=== PATIENT | male | born 1955 | race Caucasian/White ===

== ENCOUNTER 2016-08-09 22:32 | Emergency (ER) | payer BC ==
[~2016-08-09] VITALS: Ht 188 cm; Wt 96.6 kg
[2016-08-09 22:34] VITALS: Ht 188 cm; Wt 96.6 kg
[2016-08-09] MEDS ORDERED: ALBUT/IPRATROP 3MG/0.5MG NEB 3 ML VIAL INH STA (23:19)
[2016-08-09] MEDS ORDERED: METHYLPREDNISOLONE 125 MG VIAL IV STA (23:19)
[2016-08-09] MEDS ORDERED: KETOROLAC TROMETHAMINE 30 MG/ML VIAL IV STA (23:22)
[2016-08-09] MEDS ORDERED: OMEG10007 PO (23:26)
[2016-08-09] MEDS ORDERED: MULT-506 PO (23:27)
--- NOTE | 2016-08-09 23:27 | EMERGENCY ROOM VISIT NOTE ---
History Report prepared by Jaya: Aren Anne Under the Supervision of: Dr. Angélica Lockett M.D. First contact with patient: 23:13 Chief Complaint: FLU LIKE SX Stated Complaint: FEVER 103,WHEEZING(ASTHMA),FLU History of Present Illness The patient is a 60 year old male who presents to the Emergency Room with complaints of worsening difficulty breathing that began on Wednesday of this week, 4 days prior to arrival. The patient states that his symptoms began on Wednesday as a common cold, but began to worsen over the past couple of days. He has been experiencing an intermittent fever that reached 103 degrees this evening prior to arrival. Tylenol has been breaking his fevers for a short time , but then they return. His difficulty breathing is accompanied with wheezing and a persistent cough. He does have a history of asthma, but his Albuterol inhaler was not improving his difficulty breathing. He denies any chest pain, aside from muscular pain from his cough. 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 A total of 10 systems reviewed and were otherwise negative. Past Medical & Surgical Medical Problems: (1) Carpal tunnel syndrome Family History Heart disease Hypertension Lung disease Social History Smoking Status: Never Smoker Drug Use: none Marital Status: Housing Status: lives with significant other Occupation Status: employed Current/Historical Medications Scheduled Chondroitin Sulfate-Vitamin C- (Chondroitin Sulfate), 1 CAP PO DAILY Fish Oil (Gamaliel-3), 1 CAP PO DAILY Multivitamin (Multivitamin), 1 TAB PO DAILY Prednisone (Prednisone), 40 MG PO DAILY Scheduled PRN Albuterol Sulfate (Proventil Hfa), 2 PUFFS INH DIRECTED PRN for asthma Fluticasone Prop/Salmeterol (Advair Diskus 250/50 60 Dose), 1 PUFF INH BID PRN for asthma Allergies Coded Allergies: No Known Allergies (Unverified , 08/09/16) Physical Exam Vital Signs Date Time Temp Pulse Resp B/P Pulse Ox O2 Delivery O2 Flow Rate FiO2 08/10/16 01:50 77 16 109/63 90 08/10/16 00:29 75 16 113/60 90 Room Air 08/09/16 23:45 77 08/09/16 23:36 37.2 08/09/16 22:34 37.0 97 20 131/73 92 Room Air Physical Exam Vital signs reviewed. General: Well-appearing male, in no significant distress. HEENT: No scleral icterus, PERRLA, neck supple. Atraumatic. TMs partially obstructed by cerumen bilaterally. Posterior oropharynx is clear. Cardiovascular: Regular rate and rhythm, no extra sounds. Pulmonary: Faint wheezing throughout bilateral lung wheat, normal work of breathing. Abdomen: Soft, nontender, nondistended, positive bowel sounds. Musculoskeletal: Atraumatic, no peripheral edema. Neurologic: Patient awake alert and oriented x 3, full strength in all 4 extremities. Cranial nerves 2 through 12 grossly intact. Skin: Warm to touch, dry, no rash Medical Decision & Procedures ER Provider Diagnostic Interpretation: X-ray results as stated below per interpretation by me and the radiologist: CHEST X-RAY: Normal chest x-ray. No acute infiltrate, no pneumothorax. Laboratory Results 08/09/16 22:52 Red Blood Count 4.25, Mean Corpuscular Volume 93.4, Mean Corpuscular Hemoglobin 32.9, Mean Corpuscular Hemoglobin Concent 35.3, Mean Platelet Volume 9.9, Neutrophils (%) (Auto) 73.3, Lymphocytes (%) (Auto) 15.7, Monocytes (%) (Auto) 10.4, Eosinophils (%) (Auto) 0.4, Basophils (%) (Auto) 0.1, Neutrophils # (Auto ) 5.00, Lymphocytes # (Auto) 1.07, Monocytes # (Auto) 0.71, Eosinophils # (Auto ) 0.03, Basophils # (Auto) 0.01 08/09/16 22:52 Test 08/09/16 22:52 White Blood Count 6.83 K/uL (4.8-10.8) Red Blood Count 4.25 M/uL (4.7-6.1) Hemoglobin 14.0 g/dL (14.0-18.0) Hematocrit 39.7 % (42-52) Mean Corpuscular Volume 93.4 fL (80-100) Mean Corpuscular Hemoglobin 32.9 pg (25-34) Mean Corpuscular Hemoglobin Concent 35.3 g/dl (32-36) Platelet Count 159 K/uL (130-400) Mean Platelet Volume 9.9 fL (7.4-10.4) Neutrophils (%) (Auto) 73.3 % Lymphocytes (%) (Auto) 15.7 % Monocytes (%) (Auto) 10.4 % Eosinophils (%) (Auto) 0.4 % Basophils (%) (Auto) 0.1 % Neutrophils # (Auto) 5.00 K/uL (1.4-6.5) Lymphocytes # (Auto) 1.07 K/uL (1.2-3.4) Monocytes # (Auto) 0.71 K/uL (0.11-0.59) Eosinophils # (Auto) 0.03 K/uL (0-0.5) Basophils # (Auto) 0.01 K/uL (0-0.2) RDW Standard Deviation 41.6 fL (36.4-46.3) RDW Coefficient of Variation 12.3 % (11.5-14.5) Immature Granulocyte % (Auto) 0.1 % Immature Granulocyte # (Auto) 0.01 K/uL (0.00-0.02) Red Blood Cell Morphology Unremarkable Anion Gap 14.0 mmol/L (3-11) Est Creatinine Clear Calc Drug Dose 85.1 ml/min Estimated GFR () 85.3 Estimated GFR (Non- 73.6 BUN/Creatinine Ratio 16.4 (10-20) Calcium Level 8.4 mg/dl (8.5-10.1) Total Bilirubin 0.4 mg/dl (0.2-1) Direct Bilirubin 0.1 mg/dl (0-0.2) Aspartate Amino Transf (AST/SGOT) 32 U/L (15-37) Alanine Aminotransferase (ALT/SGPT) 42 U/L (12-78) Alkaline Phosphatase 59 U/L (45-117) Total Protein 7.0 gm/dl (6.4-8.2) Albumin 3.4 gm/dl (3.4-5.0) Influenza Type A (RT-PCR) Neg for Influ A (NEG) Influenza Type A Antigen Neg for Influ A (NEG) Influenza Type B Antigen Neg for Influ B (NEG) Influenza Type B (RT-PCR) Neg for Influ B (NEG) Laboratory results per my review. Medications Administered Medications (Trade) Dose Ordered Sig/Holly Route Start Time Stop Time Status Last Admin Dose Admin Albuterol/ Ipratropium (Duoneb) 3 ml NOW STAT INH 08/09/16 23:19 08/09/16 23:21 DC 08/09/16 23:40 3 ML Methylprednisolone Sodium Succinate (Solu-Medrol IV) 125 mg NOW STAT IV 08/09/16 23:19 08/09/16 23:21 DC 08/09/16 23:41 125 MG Ketorolac Tromethamine (Toradol Inj) 30 mg NOW STAT IV 08/09/16 23:22 08/09/16 23:24 DC 08/09/16 23:41 30 MG Albuterol/ Ipratropium (Duoneb) 3 ml NOW STAT INH 08/10/16 01:03 08/10/16 01:04 DC 08/10/16 01:09 3 ML ECG Indication: SOB/dyspnea Rate (beats per minute): 74 Rhythm: normal sinus Findings: no acute ischemic change, no ectopy ED Course 2319: Past medical records reviewed. The patient was evaluated in room C2. A complete history and physical examination was performed. 2319: Ordered Methylprednisolone 125 mg IV, Duoneb 3 mL INH. 2322: Ordered Toradol 30 mg IV. 0030: Per the nursing staff, the patient claims to be feeling much better at this time. His Oxygen saturations are dropping below 90% periodically. 0100: I reevaluated the patient at this time, I will order a nebulizer treatment. 0136: Upon reevaluation, the patient appeared to have improvement of his symptoms. I discussed findings with him. He verbalized agreement of the treatment plan. The patient was discharged home. Medical Decision DDx: Influenza, other viral illness, pneumonia, urinary tract infection, metabolic abnormality, medication effect, cellulitis, meningitis, intra-abdominal source. This pt was evaluated and appeared to be in no distress. Pt was given a duoneb tx, IV solumedral. Pt was feeling improved, but continued with discomfort with coughing. CXR is clear, lab work is stable. Pt was given IV toradol and another duoneb tx. He was d/c to the care of his family with a Rx for prednisone 40 mg daily for 4 more days. Pt has an albuterol inhaler. He will f /u with his PCP this week and return to the ED for worsening of symptoms or any medical concerns. Impression Primary Impression: Viral illness Additional Impression: Asthma exacerbation Scribe Attestation The scribe's documentation has been prepared under my direction and personally reviewed by me in its entirety. I confirm that the note above accurately reflects all work, treatment, procedures, and medical decision making performed by me. Departure Information Dispostion Home / Self-Care Prescriptions Prednisone (Prednisone) 20 Mg Tab 40 MG PO DAILY, #8 TAB Prov: Angélica Lockett M.D. 08/10/16 Referrals Abelardo Cha M.D. (PCP) Forms HOME CARE DOCUMENTATION FORM, IMPORTANT VISIT INFORMATION Patient Instructions My [facility] Additional Instructions Diagnosis: Viral illness, asthma exacerbation Prednisone 40 mg daily for the next 4 days. Albuterol 2 puffs every 4 hours as needed for wheezing/cough. Tylenol 650 mg every 6 hours as needed for pain or fever. Follow-up with your physician this week for reevaluation. Problem Qualifiers
[2016-08-09] MEDS ORDERED: CHONCAP PO (23:28)
[2016-08-09] MEDS ORDERED: ALBUAER INH (23:29)
[2016-08-09] MEDS ORDERED: ADVIN25/60 INH (23:29)
[2016-08-09 23:36] VITALS: TEMP 37.2
[2016-08-09 23:47] LABS: BUN/CREATININE RATIO 16.4 (10-20); CALCIUM 8.4 mg/dl (8.5-10.1); CREATININE 1.1 mg/dl (0.60-1.40)
[2016-08-09 23:49] LABS: HEMATOCRIT 39.7 % (42-52); MEAN CELL VOLUME 93.4 fL (80-100); MEAN CORPUSCULAR HEMOGLOBIN 32.9 pg (25-34); MEAN CORPUSCULAR HGB CONC 35.3 g/dl (32-36); MEAN PLATELET VOLUME 9.9 fL (7.4-10.4); PLATELET COUNT 159 K/uL (130-400); RED BLOOD COUNT 4.25 M/uL (4.7-6.1); WHITE BLOOD COUNT 6.83 K/uL (4.8-10.8)
[2016-08-10 00:12] LABS: BASO % 0.1 %; BASO ABS # 0.01 K/uL (0-0.2); COMPLETE YES; EOS % 0.4 %; IG% 0.1 %; LYMPH % 15.7 %; LYMPH ABS # 1.07 K/uL (1.2-3.4); MONO % 10.4 %; NEUT % 73.3 %
[2016-08-10] MEDS ORDERED: ALBUT/IPRATROP 3MG/0.5MG NEB 3 ML VIAL INH STA (01:03)
[2016-08-10 01:24] LABS: INFLUENZA A PCR Neg for Influ A (NEG); INFLUENZA B PCR Neg for Influ B (NEG)
[2016-08-10] MEDS ORDERED: PRED20TA PO (01:37)
[2016-08-10 01:50] VITALS: BP 109/63; PULSE 77; O2SAT 90
--- NOTE | 2016-08-10 06:38 | DIAGNOSTIC IMAGING REPORT ---
CHEST ONE VIEW PORTABLE CLINICAL HISTORY: Cough. Fever. COMPARISON STUDY: No previous studies for comparison. FINDINGS: The lung volumes are normal. No consolidation is identified. Cardiac size is at the upper limits of normal. Mediastinal contours are normal. There is no evidence of pulmonary edema. IMPRESSION: No acute cardiopulmonary findings. Electronically signed by: Farhat Bianchi M.D. 08/10/2016 6:36 AM Dictated Date/Time: 08/10/2016 6:36 AM
== END 2016-08-10 01:52 | disposition home or self-care (01) ==
LOC: C.EDB 22:32 → C.EDC 08-10 01:52
DX: B34.9 Viral infection, unspecified (principal); J45.901 Unspecified asthma with (acute) exacerbation; Z79.899 Other long term (current) drug therapy; Z82.49 Family history of ischemic heart disease and other diseases of the circulatory system; Z83.6 Family history of other diseases of the respiratory system

== ENCOUNTER → 2017-05-07 | Outpatient (CLI) | payer BC ==
[~2017-05-07] MED LIST: ADVIN25/60 INH; ALBUAER INH; CHONCAP PO; MULT-506 PO; OMEG10007 PO
[2017-05-07 12:46] LABS: ESTIMATED AVERAGE GLUCOSE 120 mg/dl; HA1C FLAG Normal (Normal)
[2017-05-07 12:53] LABS: BASO % 0.2 %; BASO ABS # 0.01 K/uL (0-0.2); COMPLETE YES; EOS % 5.5 %; HEMATOCRIT 45.4 % (42-52); IG% 0.2 %; LYMPH % 26.3 %; LYMPH ABS # 1.24 K/uL (1.2-3.4); MEAN CELL VOLUME 95.2 fL (80-100); MEAN CORPUSCULAR HEMOGLOBIN 32.3 pg (25-34); MEAN CORPUSCULAR HGB CONC 33.9 g/dl (32-36); MEAN PLATELET VOLUME 10.1 fL (7.4-10.4); MONO % 9.8 %; PLATELET COUNT 180 K/uL (130-400); RED BLOOD COUNT 4.77 M/uL (4.7-6.1); WHITE BLOOD COUNT 4.71 K/uL (4.8-10.8)
[2017-05-07 13:02] LABS: ALT/SGPT 31 U/L (12-78); BLOOD UREA NITROGEN 17 mg/dl (7-18); BUN/CREATININE RATIO 16.8 (10-20); CALCIUM 8.9 mg/dl (8.5-10.1); CARBON DIOXIDE 29 mmol/L (21-32); CHLORIDE 101 mmol/L (98-107); CHOLESTEROL 220 mg/dl (0-200); CREATININE 1.02 mg/dl (0.60-1.40); GLUCOSE 93 mg/dl (70-99); POTASSIUM 3.7 mmol/L (3.5-5.1); SODIUM 139 mmol/L (136-145)
[2017-05-07 13:06] LABS: ALB/GLOB RATIO 1.1 (0.9-2); ALKALINE PHOSPHATASE 68 U/L (45-117); AST/SGOT 21 U/L (15-37); CHOLESTEROL/HDL RATIO 2.9; HDL CHOLESTEROL 75 mg/dl; LDL CHOLESTEROL CALCULATED 135 mg/dl; TRIGLYCERIDES 48 mg/dl (0-150); VERY LOW DENSITY LIPOPROT CALC 10 mg/dl
== END | disposition home or self-care (01) ==
LOC: C.LABPBG 07:35
PROVIDERS: ATTEND Internal Medicine
DX: N52.9 Male erectile dysfunction, unspecified (principal)

== ENCOUNTER 2023-01-14 21:32 | Inpatient (IN) ==
[2023-01-14] MEDS ORDERED: KETOROLAC TROMETHAMINE 15 MG/ML VIAL IV STA (21:43)
[2023-01-14] MEDS ORDERED: SODIUM CHLORIDE 0.9% 500 ML IV STA (21:43)
[2023-01-14 22:39] LABS: Appearance Urine Clear (Clear); Bacteria Urine Automated Negative (Negative); Bilirubin Urine Negative (Negative); Blood Urine 2+ (Negative); Color Urine Yellow; Epithelial Cell Urine Auto 0-5 /lpf (0-5); Glucose Urine UA Negative (Negative); Ketones Urine Trace (Negative); Leukocyte Esterase Urine Negative (Negative); Nitrite Urine Negative (Negative); Protein Urine Negative (Negative); RBC Urine Automated 0-4 /hpf (0-4); Specific Gravity Urine 1.014 (1.000-1.030); Urobilinogen Urine Negative (Negative); pH Urine 5.5 (4.5-7.5)
[2023-01-14 22:40] LABS: Basophils # (auto) 0.01 K/uL (0-0.2); Basophils % (auto) 0.1 %; Eosinophils # (auto) 0.02 K/uL (0-0.50); Eosinophils % (auto) 0.2 %; Hematocrit (blood only) 40.1 % (42.0-52.0); Hemoglobin 14.1 g/dl (14.0-18.0); Immature Granulocytes # (auto) 0.03 K/uL (0.01-0.20); Immature Granulocytes % (auto) 0.3 %; Lymphocytes # (auto) 0.49 K/uL (1.2-3.4); Lymphocytes % (auto) 5.3 %; Mean Corpuscular Hemoglobin 33.2 pg (25.0-34.0); Mean Corpuscular Hgb Conc 35.2 g/dL (32.0-36.0); Mean Corpuscular Volume 94.4 fL (80.0-100.0); Monocytes # (auto) 0.89 K/uL (0.11-0.59); Monocytes % (auto) 9.6 %; Neutrophils # (auto) 7.79 K/uL (1.40-6.50); Neutrophils % (auto) 84.5 %; Platelet Count 149 K/uL (130-400); RDW Coefficient of Variation 11.9 % (11.5-14.5); RDW Standard Deviation 41.3 fL (36.4-46.3); Red Blood Count 4.25 M/uL (4.70-6.10); White Blood Count 9.23 K/ul (4.8-10.8)
[2023-01-14 22:54] LABS: Albumin Globulin Ratio 1.5 (0.9-2); Albumin Level 4.6 gm/dl (3.4-5.0); BUN Creatinine Ratio 14.2 (10-20); Bilirubin,Total 1.3 mg/dl (0.2-1.0); Calcium 9.5 mg/dl (8.6-10.3); Creatinine Clr Calc Pharmacy 50.7 ml/min; Est GFR (African American) 48.3 ml/min; Est GFR (Non-African American) 41.7 ml/min; Potassium 4.6 mmol/L (3.5-5.1); Total Protein 7.6 gm/dl (6.0-8.3)
[2023-01-14] MEDS ORDERED: ONDANSETRON INJ 2 MG/ML 2 ML VIAL IV STA (23:17)
[2023-01-14] MEDS ORDERED: MoRPHine SULFATE 4 MG/ML 1 ML CARP\\VIAL IV STA (23:17)
--- NOTE | 2023-01-14 23:38 | Emergency Department Note ---
History of Present Illness General Chief complaint: Kidney Stone Stated complaint: KIDNEY STONE Time Seen by Provider: 01/14/23 23:16 History of Present Illness This 67-year-old male that was here yesterday for kidney stone presents to the ER complaining of worsening pain and states oxycodone is not helping. Patient denies loss of bowel bladder control, saddle anesthesia, fever chills, leg weakness, vomiting, diarrhea. He states he feels constipated from narcotics. Home Medications Medication Instructions Recorded Confirmed Type multivitamin 1 tab PO DAILY 06/04/19 01/14/23 History omega-3 fatty acids 1,000 mg 1,000 mg PO DAILY 06/04/19 01/14/23 History capsule glucosamine HCl 1,500 mg tablet 1,500 mg PO DAILY 01/03/20 01/14/23 History vitamin B complex (B 1 tab PO DAILY 06/25/20 01/14/23 History Complex-Vitamin B12 tablet) albuterol sulfate 90 mcg/actuation 1 puff inhalation Q4H PRN 08/18/21 01/14/23 Rx aerosol inhaler (Proventil HFA) shortness of breath or wheezing #6.7 grams rosuvastatin 10 mg tablet 10 mg PO DAILY #90 tabs 08/24/22 01/14/23 Rx tadalafil 20 mg tablet (Cialis) 20 mg PO DAILY PRN sexual activity 08/24/22 01/14/23 Rx #6 tabs ondansetron 4 mg disintegrating 4 mg PO Q4H PRN nausea and 01/13/23 01/14/23 Rx tablet vomiting 0 days #10 tabs oxycodone 5 mg tablet 5 mg PO Q6H PRN pain #14 tabs 01/14/23 01/14/23 Rx tamsulosin 0.4 mg capsule (Flomax) 0.4 mg PO QPM #30 caps 01/14/23 01/14/23 Rx Allergies Allergy/AdvReac Type Severity Reaction Status Date / Time levofloxacin [From Levaquin] Allergy chest pain Verified 01/14/23 15:18 Past Med/Surg History Medical History Asthma Bronchitis Chronic leukopenia Dyslipidemia Dysplastic nevus Impaired glucose metabolism Surgical History History of arthroscopy of knee History of colonoscopy History of testicular surgery exploration of undescended testis-right Family History Mother Coronary heart disease Breast cancer Myocardial infarction Heart disease Brother Hypertension Father Myocardial infarction Heart disease Denies family history of Ovarian cancer Prostate cancer Lung cancer Colorectal cancer Stroke Social History Smoking Status: Never smoker Second Hand Exposure: No; Do You Dip or Chew Tobacco: No; Hx Alcohol Use: Yes Alcohol type: wine and hard liquor Alcohol Intake Frequency: 2-3 x/Week Alcohol Intake Frequency Comment: couple per week Hx Substance Use: No Preferred Language: Japanese Communication Ability: Effective Visual Impairment: No Limitations Hearing Ability: Normal Supervisor Inspecting Required: No marital status: Current Living Situation: Spouse 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[employer] How many Children do You have: 0 Feels Safe at Home: Yes Childhood Exposure to Second-Hand Smoke: Yes Diet: regular Diet Comment: regular caffeine: Yes Dental Care, Regularly: Yes Physical Activity Frequency: 5-6 Times per Week Physical Activity Frequency Comment: 4 miles per day Seatbelt Use: always Sunscreen Use: Yes Review of Systems A total of 10 systems reviewed and were otherwise negative Physical Exam Vital Signs Vital Signs - 24 hr 01/14/23 21:40 Temperature 37.2 C Temperature Source Temporal Artery Scan Pulse Rate 83 Respiratory Rate 18 Respiratory Effort / Characteristics Non-Labored Spontaneous Respiratory Depth Normal Respiratory Pattern Regular Blood Pressure 163/75 H Blood Pressure Mean 104 Pulse Oximetry 98 Oxygen Delivery Method Room Air Sepsis Recent Fever Within 48 Hours No Sepsis New/Unexplained Change in Mental Status No Sepsis Action Taken by Nursing No Action Required VITALS: Vitals are noted on the nurse's note and reviewed by myself. Vital signs stable. GENERAL: Pleasant male, in no acute distress, nondiaphoretic, well-developed well-nourished. SKIN: The skin was without rashes, erythema, edema, or bruising. There is no tenting of the skin. Capillary reflex less than 2 seconds. HEAD: Normocephalic atraumatic. EARS: External auditory canals clear, EYES: Pupils equal round and reactive to light and accommodation. Conjunctivae without injection, sclerae without icterus. Extraocular movements intact. NOSE: Patent, turbinates without inflammation or discharge. MOUTH: Mucous membranes moist. Pharynx without erythema or exudate. Uvula midline. Airway patent. Tongue does not deviate. NECK: Supple without nuchal rigidity. No lymphadenopathy. No thyromegaly. Cervical spine is nontender. No JVD. HEART: Regular rate and rhythm LUNGS: Clear to auscultation bilaterally without wheezes, rales or rhonchi. No retractions or accessory muscle use. ABDOMEN: Positive bowel sounds x 4. Normal tympanic percussion. Soft, nontender, without masses or organomegaly. Holliday sign negative. No guarding or rebound tenderness. No CVA tenderness MUSCULOSKELETAL: No muscle atrophy, erythema, or edema noted. NEURO: Patient was alert and oriented to person place and time. Normal sensation to light and sharp touch. No focal neurological deficits. Course Administered Medications Discontinued Medications Ketorolac Tromethamine (Ketorolac Tromethamine 15 Mg/Ml Vial) 15 mg IV ONE STA Stop: 01/14/23 21:44 Last Admin: 01/14/23 22:11 Dose: 15 mg Documented By: MARY Medical Decision Making Medical Records Attestation: I reviewed the patient's medical records. Home Medications Current Medication List: was personally reviewed by me Laboratory Data Attestation: I reviewed the patient's lab results. 01/14/23 22:12 01/14/23 22:12 Lab Results 01/14/23 01/14/23 01/14/23 Range/Units 22:12 22:12 22:16 WBC 9.23 (4.8-10.8) K/ul RBC 4.25 L (4.70-6.10) M/uL Hgb 14.1 (14.0-18.0) g/dl Hct 40.1 L (42.0-52.0) % MCV 94.4 (80.0-100.0) fL MCH 33.2 (25.0-34.0) pg MCHC 35.2 (32.0-36.0) g/dL RDW Std Deviation 41.3 (36.4-46.3) fL RDW Coeff of Soumya 11.9 (11.5-14.5) % Plt Count 149 (130-400) K/uL MPV 10.0 (9.4-12.4) fL Immature Gran % (Auto) 0.3 % Neut % (Auto) 84.5 % Lymph % (Auto) 5.3 % Buchanan % (Auto) 9.6 % Eos % (Auto) 0.2 % Baso % (Auto) 0.1 % Neut # (Auto) 7.79 H (1.40-6.50) K/uL Lymph # (Auto) 0.49 L (1.2-3.4) K/uL Buchanan # (Auto) 0.89 H (0.11-0.59) K/uL Eos # (Auto) 0.02 (0-0.50) K/uL Baso # (Auto) 0.01 (0-0.2) K/uL Immature Gran # (Auto) 0.03 (0.01-0.20) K/uL Sodium 134 L (136-145) mmol/L Potassium 4.6 (3.5-5.1) mmol/L Chloride 101 (98-107) mmol/L Carbon Dioxide 27 (21-32) mmol/L Anion Gap 6 (3-11) BUN 24 H (6-23) mg/dl Creatinine 1.69 H D (0.6-1.4) mg/dl Est Cr Clr Drug Dosing 50.7 ml/min Est GFR ( Amer) 48.3 ml/min Est GFR (Non-Af Amer) 41.7 ml/min BUN/Creatinine Ratio 14.2 (10-20) Glucose 123 H (70-99(Fasting)) mg/dl Calcium 9.5 (8.6-10.3) mg/dl Total Bilirubin 1.3 H (0.2-1.0) mg/dl AST 27 (13-39) U/L ALT 27 (7-52) U/L Alkaline Phosphatase 61 (34-104) U/L Total Protein 7.6 (6.0-8.3) gm/dl Albumin 4.6 (3.4-5.0) gm/dl Globulin 3.0 (2.5-4.0) gm/dl Albumin/Globulin Ratio 1.5 (0.9-2) Urine Color Yellow Urine Appearance Clear (Clear) Urine pH 5.5 (4.5-7.5) Ur Specific Carlton 1.014 (1.000-1.030) Urine Protein Negative (Negative) Urine Glucose (UA) Negative (Negative) Urine Ketones Trace H (Negative) Urine Blood 2+ H (Negative) Urine Nitrite Negative (Negative) Urine Bilirubin Negative (Negative) Urine Urobilinogen Negative (Negative) Ur Leukocyte Esterase Negative (Negative) Urine WBC (Auto) 1-5 (0-5) /hpf Urine RBC (Auto) 0-4 (0-4) /hpf U Hyaline Cast (Auto) 1-5 (0-5) /lpf U Epithel Cells (Auto) 0-5 (0-5) /lpf Urine Bacteria (Auto) Negative (Negative) Imaging Data Attestation: I personally reviewed and interpreted this imaging study as follows : MDM Narrative Prior records/ancillary studies reviewed. Triage Nursing notes reviewed. Additional history obtained from the family. The patient's history was concerning for flare pain. Differential diagnosis: Etiologies such as renal colic, appendicitis, diverticulitis, mesenteric ischemia, aortic pathology, infections, inflammatory bowel disease, PUD, biliary pathology, UTI, as well as others were entertained. Physical examination findings: As above. ER treatment provided: Morphine Toradol Zofran was ordered On reassessment the patient felt better. Diagnostic interpretation by me: The labs Independently Interpreted by myself revealed no worrisome leukocytosis, acute kidney injury. Urinalysis revealed There was no sign of U TI. [facility] [place] [place] [phone] XRay Report Patient:MARILY BURNS Admit Date:01/14/23 MR#:[id number] Address1:[address] [place] [address] Acct ID:[id number] Address2: Date:1955 [facility] Zip:[place] [id number] Age:67 Location:[facility] Sex: Room/Bed: Att Phy:Ivanna Jalloh CRNP Diagnosis:N20.0 - Calculus of kidney Beatris Phy:Ced Fenton DO Service Date:01/14/23 Fam Phy: Interpreting Phy:Dane Silver MDAdmit Phy: Ordering Phy:Ivanna Jalloh CRNP cc: ~ KUB HISTORY: Left-sided kidney stones. Follow-up. N20.0 - Calculus of kidney COMPARISON: Abdomen and pelvis CT 01/13/2023. FINDINGS: The bowel gas pattern is unremarkable. There are no dilated loops of small bowel to suggest an obstruction. The lung bases are clear. There is a moderate to large amount well-formed stool seen throughout the colon. The renal shadows are obscured by overlying bowel gas. There is a 4 mm calcification adjacent to the left side of the L3-L4 disc space. This may represent the patient's known left ureteral stone. The patient's known right renal calculi are obscured by overlying bowel gas. Calcifications in the deep pelvis are consistent with phleboliths. No pneumoperitoneum or pneumatosis. IMPRESSION: 1. The patient's known 4 mm left ureteral stone is not significantly changed in position. 2. The patient's known right renal calculi are obscured by overlying bowel gas. ACT 112: Negative or not required by law. Electronically signed by: Dane Silver M.D. 01/14/2023 5:10 PM KUB concerning for left ureteral stone per my independent interpretation Consultation: A consultation was placed with the hospitalist. The case was discussed and diagnostics were reviewed. The patient was evaluated in the ER for further treatment. It appears that the patient has isolated renal colic from a left sided stone with acute kidney injury. Patient was still moderate amount of pain. He was seen here last night. He had KUB today that shows no change in his kidney stone location. Medicine was consulted and the case was discussed. He will be admitted for pain management and for acute kidney injury. Patient is agreeable. By the evaluation outlined above emergent etiologies such as appendicitis, diverticulitis, mesenteric ischemia, aortic pathology, infections, inflammatory bowel disease, PUD, biliary pathology, UTI, as well as others were deemed r elatively unlikely. The pt informed about the findings as listed above. All questions were answered and pleased with the treatment. The chart was completed utilizing [employer] voice recognition software. Grammatical errors, random word insertions, pronoun errors, and incomplete sentences are an occassional consequence of this system due to software limitations, ambient noise, and hardware issues. Any formal questions or concerns about the content, text, or information contained within the body of this dictation should be directly addressed to the physician or assistant for clarification. Impression & Plan Renal colic on left side, Ureterolithiasis, MELLY (acute kidney injury) Discharge Plan Visit Data Chief Complaint: Kidney Stone Stated Complaint: KIDNEY STONE ED Provider: Mylene Love ED Midlevel Provider: Sima Florentino Discharge Problem: Renal colic on left side, Ureterolithiasis, MELLY (acute kidney injury) Patient Disposition: Admitted As Inpatient Condition: Good Forms Stand Alone Forms: [facility] That{img} Prescriptions Prescriptions: No Action glucosamine HCl 1,500 mg tablet 1,500 mg PO DAILY albuterol sulfate [Proventil HFA] 90 mcg/actuation HFA aerosol inhaler 1 puff INH Q4H PRN (Reason: shortness of breath or wheezing) Qty: 6.7 5RF omega-3 fatty acids 1,000 mg capsule 1,000 mg PO DAILY multivitamin tablet 1 tab PO DAILY vitamin B complex [B Complex-Vitamin B12] Tablet 1 tab PO DAILY rosuvastatin 10 mg tablet 10 mg PO DAILY Qty: 90 3RF tadalafil [Cialis] 20 mg tablet 20 mg PO DAILY PRN (Reason: sexual activity) Qty: 6 4RF tamsulosin [Flomax] 0.4 mg capsule 0.4 mg PO QPM Qty: 30 2RF Rx Instructions: Take one capsule at bedtime. oxycodone 5 mg tablet 5 mg PO Q6H PRN (Reason: pain) Qty: 14 0RF ondansetron 4 mg tablet,disintegrating 4 mg PO Q4H PRN (Reason: nausea and vomiting) Qty: 10 0RF Referrals Referrals: eCd Fenton DO [Primary Care Provider] -
--- NOTE | 2023-01-14 23:57 | History & Physical Report ---
Date of Service January 14, 2023 Assessment & Plan (1) Ureterolithiasis: Plan: Patient with intractable left flank pain from 4 mm proximal left ureterolithiasis Also here with acute kidney injury but no evidence of UTI -Admit to medical/surgical unit -Consult urology as we will likely need a more urgent stent given the acute kidney injury --Keep n.p.o. after midnight -Start normal saline at 100 MLS per hour -Continue tamsulosin -Morphine IV as needed for pain -Follow BMP in the morning (2) MELLY (acute kidney injury): Plan: Creatinine 1.69 up from 1.1 the day prior -Likely secondary to left obstructive ureterolithiasis and possibly due to prerenal from poor p.o. intake -Hydrate with IV fluids -Consult urology for likely ureteral stent as above (3) Asthma: Plan: No acute issues Albuterol as needed (4) Hyponatremia: Plan: Sodium mildly low at 134, likely secondary to hypovolemia Giving normal saline Follow BMP in the morning (5) Hyperbilirubinemia: Plan: Total bilirubin mildly elevated at 1.3 and has been mildly elevated in the past Likely has Gilbert's syndrome especially as CT abdomen/pelvis from 01/13 is with normal liver and gallbladder and bile ducts No need to follow (6) Dyslipidemia: Plan: Continue statin (7) Impaired glucose metabolism: Plan: No acute issues Plan DVT prophylaxis-SCDs only as will likely have planned urology procedure Disposition-admit to medical/surgical unit. If has ureteral stent tomorrow, can likely discharge home later in the day if pain is controlled and renal function is improved History of Present Illness Chief Complaint: Left flank pain Primary Care Provider: Ced Fenton DO This patient is a 67-year-old male with a history of hyperlipidemia, asthma, and impaired fasting glucose who presents to the ER with intractable left flank and abdominal pain ongoing since being seen for this in the ER on 01/13 when he was diagnosed with a 4 mm proximal left ureteral stone. He was sent home and had close follow-up with urology in the office the next day and arrangements were made for treatment of the stone. He was given tamsulosin and oxycodone. He came to the ER because he is having ongoing severe pain, some nausea but no vomiting. He also complains of constipation x2 days and had some bright red blood on the toilet paper with straining to have a bowel movement today without success. He denies fevers or chills, no headaches or lightheadedness, no chest pain or shortness of breath, no other complaints. In the ER, he was mildly hypertensive but otherwise vitals were stable and he was afebrile. He was treated with IV fluids, a dose of morphine and Toradol as well as Zofran with some relief. He was also found to have an acute kidney injury with creatinine up to 1.69 from 1.1 the day prior. His urinalysis did not show any evidence of infection. He will be admitted for left ureterolithiasis and acute kidney injury. Allergies Allergy/AdvReac Type Severity Reaction Status Date / Time levofloxacin [From [facility]] Allergy chest pain Verified 01/14/23 15:18 Home Medications Medication Instructions Recorded Confirmed Type multivitamin 1 tab PO DAILY 06/04/19 01/15/23 History omega-3 fatty acids 1,000 mg 1,000 mg PO DAILY 06/04/19 01/15/23 History capsule glucosamine HCl 1,500 mg tablet 1,500 mg PO DAILY 01/03/20 01/15/23 History vitamin B complex (B 1 tab PO DAILY 06/25/20 01/15/23 History Complex-Vitamin B12 tablet) albuterol sulfate 90 mcg/actuation 1 puff inhalation Q4H PRN 08/18/21 01/15/23 Rx aerosol inhaler (Proventil HFA) shortness of breath or wheezing #6.7 grams rosuvastatin 10 mg tablet 10 mg PO DAILY #90 tabs 08/24/22 01/15/23 Rx tadalafil 20 mg tablet (Cialis) 20 mg PO DAILY PRN sexual activity 08/24/22 01/15/23 Rx #6 tabs ondansetron 4 mg disintegrating 4 mg PO Q4H PRN nausea and 01/13/23 01/15/23 Rx tablet vomiting 0 days #10 tabs oxycodone 5 mg tablet 5 mg PO Q6H PRN pain #14 tabs 01/14/23 01/15/23 Rx tamsulosin 0.4 mg capsule (Flomax) 0.4 mg PO HS 01/15/23 01/15/23 History Past Med/Surg History Medical History (Updated 01/15/23 @ 00:24 by Pari Corrales MD) Asthma Bronchitis Chronic leukopenia Dyslipidemia Dysplastic nevus Hyperbilirubinemia Impaired glucose metabolism Surgical History History of arthroscopy of knee History of colonoscopy History of testicular surgery exploration of undescended testis-right Family History Mother Coronary heart disease Breast cancer Myocardial infarction Heart disease Brother Hypertension Father Myocardial infarction Heart disease Denies family history of Ovarian cancer Prostate cancer Lung cancer Colorectal cancer Stroke Social History Smoking Status: Never smoker Second Hand Exposure: No; Do You Dip or Chew Tobacco: No; Hx Alcohol Use: Yes Alcohol type: wine and hard liquor Alcohol Intake Frequency: 2-3 x/Week Alcohol Intake Frequency Comment: couple per week Hx Substance Use: No Preferred Language: Greenlandic Communication Ability: Effective Visual Impairment: No Limitations Hearing Ability: Normal Esthetician 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 Required: No marital status: Current Living Situation: Spouse 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[employer] How 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 Children do You have: 0 Feels Safe at Home: Yes Childhood Exposure to Second-Hand Smoke: Yes Diet: regular Diet Comment: regular caffeine: Yes Dental Care, Regularly: Yes Physical Activity Frequency: 5-6 Times per Week Physical Activity Frequency Comment: 4 miles per day Seatbelt Use: always Sunscreen Use: Yes Review of Systems Review of Systems: All systems reviewed & are unremarkable except as noted in HPI & below Physical Exam Constitutional: WD/WN, vitals as above Eyes: PERRL, conjunctivae normal, anicteric sclerae ENMT: external ear and nose normal, oropharynx normal Neck: trachea midline, no thyromegaly Respiratory: normal respiratory effort, lungs clear to auscultation Cardiovascular: RRR, no murmur, no edema Chest (Breasts): Chest: normal inspection of chest Gastrointestinal (Abdomen): Inspection/Auscultation: abdomen normal to inspection and normal bowel sounds; abdomen not distended Percussion/Palpation: + abdomen tender (Mild TTP in the LLQ and flank without guarding or rebound) and abdomen soft; no guarding Musculoskeletal: Extremities: extremities normal to inspection; no cyanosis and no clubbing Skin: no rashes, warm and dry Neurologic: moves all extremities and awake; no focal motor deficits Psychiatric: A+Ox3, euthymic affect Lymphatic: no lymphedema Results & Data Results & Data Vital Signs (Past 12 Hours) Vital Signs Temp Pulse Resp BP Pulse Ox O2 Del Method 01/14/23 21:40 37.2 C 83 18 163/75 H 98 Room Air Laboratory Results CBC, CMP, urinalysis reviewed Code Status & VTE Plan Code Status Full code VTE Prophylaxis Plan VTE Prophylaxis will be ordered: Yes PG Care Time/CCT Total # of Minutes Spent Total Time Spent with Patient: Total time spent is greater than 50% in coordination of care (as documented) at patient's floor/unit and/or counseling patient: Coding Level of Care Code 07456 INT INP/OBS CARE 255MIN Diagnoses Ureterolithiasis N20.1 MELLY (acute kidney injury) N17.9 Asthma J45.20 Asthma severity: mild Asthma persistence: intermittent Asthma complication type: uncomplicated Hyponatremia E87.1 Hyperbilirubinemia E80.6 Dyslipidemia E78.5 Impaired glucose metabolism R73.09 (3) Asthma Asthma severity: mild Asthma persistence: intermittent Asthma complication type: uncomplicated Qualified Code(s): J45.20 - Mild intermittent asthma, uncomplicated
[2023-01-15] MEDS ORDERED: ONDANSETRON INJ 2 MG/ML 2 ML VIAL IV PRN ×2 (03:19→12:36)
[2023-01-15] MEDS ORDERED: ALBUTEROL HFA 8 GM INHALER INH PRN (03:19)
[2023-01-15] MEDS ORDERED: ACETAMINOPHEN 325 MG TAB PO PRN (03:19)
[2023-01-15] MEDS: MoRPHine SULFATE 2 MG/ML CARP IV PRN ×3 (03:37→11:29)
[2023-01-15] MEDS: DOCUSATE SODIUM/SENNA 50/8.6MG TAB PO SCH ×2 (04:48→21:25)
[2023-01-15] MEDS: SODIUM CHLORIDE 0.9% 1000ML 1,000 ML IV SCH ×2 (04:48→12:39)
[2023-01-15] MEDS: TAMSULOSIN HCL 0.4 MG CAP PO SCH ×2 (04:48→21:25)
[2023-01-15 08:28] LABS: BUN Creatinine Ratio 14.8 (10-20); Calcium 8.8 mg/dl (8.6-10.3); Creatinine Clr Calc Pharmacy 57.5 ml/min; Est GFR (African American) 56.3 ml/min; Est GFR (Non-African American) 48.6 ml/min; Potassium 4.1 mmol/L (3.5-5.1)
[2023-01-15 09:39] LABS: Basophils # (auto) 0.02 K/uL (0-0.2); Basophils % (auto) 0.3 %; Eosinophils # (auto) 0.05 K/uL (0-0.50); Eosinophils % (auto) 0.6 %; Hematocrit (blood only) 37.2 % (42.0-52.0); Hemoglobin 12.9 g/dl (14.0-18.0); Immature Granulocytes # (auto) 0.02 K/uL (0.01-0.20); Immature Granulocytes % (auto) 0.3 %; Lymphocytes # (auto) 0.93 K/uL (1.2-3.4); Lymphocytes % (auto) 11.6 %; Mean Corpuscular Hemoglobin 32.9 pg (25.0-34.0); Mean Corpuscular Hgb Conc 34.7 g/dL (32.0-36.0); Mean Corpuscular Volume 94.9 fL (80.0-100.0); Mean Platelet Volume 10.5 fL (9.4-12.4); Monocytes # (auto) 1.05 K/uL (0.11-0.59); Monocytes % (auto) 13.1 %; Neutrophils # (auto) 5.93 K/uL (1.40-6.50); Neutrophils % (auto) 74.1 %; Platelet Count 135 K/uL (130-400); RDW Coefficient of Variation 11.9 % (11.5-14.5); RDW Standard Deviation 41.5 fL (36.4-46.3); Red Blood Count 3.92 M/uL (4.70-6.10)
[2023-01-15] MEDS: ROSUVASTATIN CALCIUM 10 MG TAB PO SCH (10:54)
[2023-01-15] MEDS ORDERED: PROPOFOL IV EMULSION 10 MG/ML 20 ML VIAL IV ONE ×2 (11:14→13:37)
[2023-01-15] MEDS ORDERED: DEXAMETHASONE SOD INJ 4 MG/ML VIAL ONE (11:14)
[2023-01-15] MEDS ORDERED: ONDANSETRON INJ 2 MG/ML 2 ML VIAL ONE (11:14)
[2023-01-15] MEDS ORDERED: LIDOCAINE 2% 2 ML VIAL/AMP(20MG/ML) INFIL ONE (11:14)
[2023-01-15] MEDS ORDERED: fentaNYL citrate PF 100 MCG/2 ML VIAL ONE (11:15)
[2023-01-15] MEDS ORDERED: MIDAZOLAM HCL 1 MG/ML 2ML VIAL ONE (11:15)
--- NOTE | 2023-01-15 11:31 | Urology Consultation ---
Date of Consultation January 15, 2023 Assessment & Plan (1) Renal colic on left side: (2) Ureterolithiasis: (3) MELLY (acute kidney injury): Plan 67yo/M with a 4mm proximal left ureteral stone admitted with renal colic and MELLY. Afebrile and hemodynamically stable. Labs today show no leukocytosis and creatinine 1.49 (1.69 yesterday). Continue to trend. Urinalysis without evidence of infection. We discussed options for acute stone management with cystoscopy and stent placement, possible stone treatment. Ureteral stents were discussed as well as postoperative issues and pain management. He is aware that a second procedure may be needed for stone treatment. We also discussed option for max expulsion therapy. Discussed stone passage rates given size and location. We discussed outpatient ESWL next week as scheduled. Risks and benefits of each discussed. He prefers to proceed with cystoscopy, left retrograde pyelogram, left ureteral stent placement, possible ureteroscopy and stone treatment today with Dr. Bliss. Risks and benefits to be reviewed with patient by Dr. Bliss. Continue supportive care and pain management. Will cover with IV Ancef preoperatively. Keep NPO. Urology to follow. Attending note: Patient was independently examined, interviewed, assessed, and evaluated. Agree with note as above. Patient has significant onset of pain discomfort on the left side coming in waves. With severe nature. Patient had presented with mild MELLY of 1.69. His hemoglobin was stable at 12.1 with a white count of 8.0. Patient has other labs these were all evaluated reviewed pertinent values in the HPI and plan section. Patient does have history of tendinitis. Has some other medical issues and comorbidities. These were discussed. Patient imaging was reviewed interpreted by myself. Obstructing stone in the proximal/mid ureter causing hydronephrosis on the left. Has been increasing in pain and bother. Has been an ongoing issue. Vitals are currently stable. Blood pressure was 133/73. Temperature was 37.0. No episodes of fevers. Patient was satting 95% on room air. Reviewed extensively options. Discussed possible issues. Discussed risk and benefits. Discussed options for conservative measure and maximum expulsion medical therapy and symptom controlled. Discussed ESWL. Discussed Ureteroscopy with extraction and/or laser lithotripsy. Risks and benefits were discussed. Stone free rates were also discussed as well as possibility of multiple procedures. Ureteral stents were discussed as well as post-operative issues and pain management. All questions were answered. Risks and benefits discussed at length for procedure. These include bleeding, infection, injury to surrounding tissues or organs, and risks associated with anesthesia. Patient states understanding and agrees to proceed. Will sign consent and schedule. Plan to proceed with cystoscopy with left-sided stone treatment with ureteroscopy and possible stent History of Present Illness Attending Physician: Ced Arellano DO History of Present Illness 67-year-old male with a history of hyperlipidemia, asthma, and impaired fasting glucose who presented to the ER with intractable left flank and abdominal pain ongoing since being seen for this in the ER on 01/13 when he was diagnosed with a 4 mm proximal left ureteral stone. He was sent home and had follow-up with our office 01/14 and was scheduled for Left ESWL next Wednesday for stone treatment. Unfortunately his pain became severe and prompted his arrival in the ED. In the ER, he was afebrile, mildly hypertensive but otherwise vitals were stable. Labs revealed no leukocytosis but an MELLY of 1.69. Urinalysis without e vidence of infection. He was treated with IV fluids, a dose of morphine and Toradol as well as Zofran with some relief. He is admitted to medicine for pain control and further management. CT abdomen pelvis 01/13- 4 mm stone within the proximal left ureter. Mild hydronephrosis on the left KUB 01/14- 4 mm left ureteral stone is not significantly changed in position. Patient examined at bedside this morning. Awake, resting in bed on arrival. No acute distress. Pain has improved with medication. Denies any stone passage. Denies fevers, chills, nausea, vomiting. Voiding without issue. Has been NPO. Allergies Allergy/AdvReac Type Severity Reaction Status Date / Time levofloxacin [From Levaquin] Allergy chest pain Verified 01/14/23 15:18 Home Medications Medication Instructions Recorded Confirmed Type multivitamin 1 tab PO DAILY 06/04/19 01/15/23 History omega-3 fatty acids 1,000 mg 1,000 mg PO DAILY 06/04/19 01/15/23 History capsule glucosamine HCl 1,500 mg tablet 1,500 mg PO DAILY 01/03/20 01/15/23 History vitamin B complex (B 1 tab PO DAILY 06/25/20 01/15/23 History Complex-Vitamin B12 tablet) albuterol sulfate 90 mcg/actuation 1 puff inhalation Q4H PRN 08/18/21 01/15/23 Rx aerosol inhaler (Proventil HFA) shortness of breath or wheezing #6.7 grams rosuvastatin 10 mg tablet 10 mg PO DAILY #90 tabs 08/24/22 01/15/23 Rx tadalafil 20 mg tablet (Cialis) 20 mg PO DAILY PRN sexual activity 08/24/22 01/15/23 Rx #6 tabs ondansetron 4 mg disintegrating 4 mg PO Q4H PRN nausea and 01/13/23 01/15/23 Rx tablet vomiting 0 days #10 tabs oxycodone 5 mg tablet 5 mg PO Q6H PRN pain #14 tabs 01/14/23 01/15/23 Rx tamsulosin 0.4 mg capsule (Flomax) 0.4 mg PO HS 01/15/23 01/15/23 History Patient History Medical History Asthma Bronchitis Chronic leukopenia Dyslipidemia Dysplastic nevus Hyperbilirubinemia Impaired glucose metabolism Surgical History History of arthroscopy of knee History of colonoscopy History of testicular surgery exploration of undescended testis-right Family History Mother Coronary heart disease Breast cancer Myocardial infarction Heart disease Brother Hypertension Father Myocardial infarction Heart disease Denies family history of Ovarian cancer Prostate cancer Lung cancer Colorectal cancer Stroke Social History Smoking Status: Never smoker Second Hand Exposure: No; Do You Dip or Chew Tobacco: No; Hx Alcohol Use: No Hx Substance Use: No Preferred Language: Nigerian Communication Ability: Effective Visual Impairment: No Limitations Hearing Ability: Normal Cisco Network 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 Required: No marital status: Current Living Situation: Spouse 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 Feels Safe at Home: Yes Childhood Exposure to Second-Hand Smoke: Yes Diet: regular Diet Comment: regular caffeine: Yes Dental Care, Regularly: Yes Physical Activity Frequency: 5-6 Times per Week Physical Activity Frequency Comment: 4 miles per day Seatbelt Use: always Sunscreen Use: Yes Assistive Devices: None Review of Systems Review of Systems: All systems reviewed & are unremarkable except as noted in HPI & below Physical Exam Constitutional: well developed and well nourished; no acute distress Neck: normal visual inspection Respiratory: normal respiratory effort; no respiratory distress and no labored breathing Musculoskeletal: Head/Neck/Chest: normocephalic Skin: No visible rashes or lesions to exposed skin areas Neurologic: moves all extremities and awake Psychiatric: A+Ox3, euthymic affect Results & Data Vital Signs (Past 12 Hours) Vital Signs Temp Pulse Pulse Pulse Resp BP BP 01/15/23 07:00 37.0 C 70 14 133/73 01/15/23 03:19 36.8 C 68 18 136/72 01/15/23 02:51 64 16 122/71 01/15/23 02:40 60 16 01/15/23 02:30 62 16 01/15/23 02:20 64 22 01/15/23 02:10 66 18 01/15/23 02:00 63 25 H 01/15/23 02:00 122/71 01/15/23 01:50 63 17 01/15/23 01:40 67 21 01/15/23 01:30 65 19 01/15/23 01:20 68 18 01/15/23 01:17 64 18 01/15/23 01:17 130/71 01/15/23 01:10 67 20 01/15/23 01:00 69 21 01/15/23 00:53 77 24 01/15/23 01:17 67 16 130/71 Pulse Ox O2 Del Method 01/15/23 07:00 95 Room Air 01/15/23 03:19 94 Room Air 01/15/23 02:51 95 Room Air 01/15/23 02:40 94 01/15/23 02:30 94 01/15/23 02:20 93 01/15/23 02:10 93 01/15/23 02:00 93 01/15/23 02:00 01/15/23 01:50 93 01/15/23 01:40 92 01/15/23 01:30 93 01/15/23 01:20 94 01/15/23 01:17 96 01/15/23 01:17 01/15/23 01:10 94 01/15/23 01:00 95 01/15/23 00:53 96 01/15/23 01:17 94 Room Air PG Care Time/CCT Total # of Minutes Spent Total Time Spent with Patient: Total time spent is greater than 50% in coordination of care (as documented) at patient's floor/unit and/or counseling patient: Coding Level of Care Code 99399 INT INP/OBS CARE 2/55MIN Diagnoses Renal colic on left side N23 Ureterolithiasis N20.1 MELLY (acute kidney injury) N17.9
[2023-01-15] MEDS ORDERED: ceFAZolin 2000MG 2,000 MG/15 ML SYR IV ONE ×2 (11:50→12:15)
[2023-01-15] MEDS ORDERED: fentaNYL citrate PF 100 MCG/2 ML VIAL IV PRN (12:36)
[2023-01-15] MEDS ORDERED: ePHEDrine sulfate 50 MG/ML AMP IV PRN (12:36)
[2023-01-15] MEDS ORDERED: ATROPINE SULFATE 0.1 MG/ML 10ML SYR IV PRN (12:36)
--- NOTE | 2023-01-15 12:36 | Anesthesiology Consultation ---
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 Surgery Operation Date: 01/15/23 13:30 Proposed Procedures p Cystoscopy, Left Retrograde Pyelogram, Left Stent, Possible Ureteroscopy, Laser Lithotripsy Stone Treatment - Jabari Bliss, DO Height/Weight Height: 6 ft 2 in Weight: 94.4 kg Allergies Allergy/AdvReac Type Severity Reaction Status Date / Time levofloxacin [From Levaquin] Allergy chest pain Verified 01/14/23 15:18 Medications Home Medications Medication Instructions Recorded Confirmed Last Taken multivitamin 1 tab PO DAILY 06/04/19 01/15/23 Unknown omega-3 fatty acids 1,000 mg 1,000 mg PO DAILY 06/04/19 01/15/23 Unknown capsule glucosamine HCl 1,500 mg tablet 1,500 mg PO DAILY 01/03/20 01/15/23 Unknown vitamin B complex (B 1 tab PO DAILY 06/25/20 01/15/23 Unknown Complex-Vitamin B12 tablet) albuterol sulfate 90 mcg/actuation 1 puff inhalation Q4H PRN 08/18/21 01/15/23 Unknown aerosol inhaler (Proventil HFA) shortness of breath or wheezing #6.7 grams rosuvastatin 10 mg tablet 10 mg PO DAILY #90 tabs 08/24/22 01/15/23 Unknown tadalafil 20 mg tablet (Cialis) 20 mg PO DAILY PRN sexual activity 08/24/22 01/15/23 Unknown #6 tabs ondansetron 4 mg disintegrating 4 mg PO Q4H PRN nausea and 01/13/23 01/15/23 Unknown tablet vomiting 0 days #10 tabs oxycodone 5 mg tablet 5 mg PO Q6H PRN pain #14 tabs 01/14/23 01/15/23 Unknown tamsulosin 0.4 mg capsule (Flomax) 0.4 mg PO HS 01/15/23 01/15/23 Unknown Active Medications Generic Name Dose Route Start Last Admin Trade Name Freq PRN Reason Stop Dose Admin Acetaminophen 650 mg 01/15/23 03:19 01/15/23 06:34 Acetaminophen 325 Mg Tab PO 02/14/23 03:18 650 mg Q4H PRN Administration pain/fever Sodium Chloride 1,000 mls @ 100 mls/hr 01/15/23 03:19 01/15/23 04:48 Nss 1000ml IV 02/14/23 03:18 100 mls/hr .Q10H LUIS Administration Morphine Sulfate 2 mg 01/15/23 03:19 01/15/23 11:29 Morphine Sulfate 2 Mg/Ml Carp IV 01/29/23 03:18 2 mg Q4H PRN Administration moderate-severe Pain Rosuvastatin Calcium 10 mg 01/15/23 09:00 01/15/23 10:54 Rosuvastatin Calcium 10 Mg Tab PO 02/14/23 08:59 10 mg DAILY LUIS Administration Senna/Docusate Sodium 1 tab 01/15/23 03:19 01/15/23 04:48 Docusate Sodium/Senna 50/8.6mg Tab PO 02/14/23 03:18 1 tab HS LUIS Administration Tamsulosin HCl 0.4 mg 01/15/23 03:19 01/15/23 04:48 Tamsulosin Hcl 0.4 Mg Cap PO 02/14/23 03:18 0.4 mg QPM LUIS Administration Past Medical History Medical History Asthma Bronchitis Chronic leukopenia Dyslipidemia Dysplastic nevus Hyperbilirubinemia Impaired glucose metabolism Past Family History Family History Mother Coronary heart disease Breast cancer Myocardial infarction Heart disease Brother Hypertension Father Myocardial infarction Heart disease Denies family history of Ovarian cancer Prostate cancer Lung cancer Colorectal cancer Stroke Past Surgical History Surgical History History of arthroscopy of knee History of colonoscopy History of testicular surgery exploration of undescended testis-right Social History Smoking Status: Never smoker Do You Dip or Chew Tobacco: No Hx Alcohol Use: No Alcohol type: wine and hard liquor Hx Substance Use: No Physical Exam Vital Signs Last Vital Signs Temp 98.6 F 01/15/23 12:16 Pulse 82 01/15/23 12:16 Resp 17 01/15/23 12:16 BP 160/79 H 01/15/23 12:16 Pulse Ox 98 01/15/23 12:16 O2 Del Method Room Air 01/15/23 12:16 Testing Laboratory Results 01/15/23 06:53 01/15/23 06:53 Urine Color Yellow 01/14/23 22:16 Urine Appearance Clear (Clear) 01/14/23 22:16 Urine pH 5.5 (4.5-7.5) 01/14/23 22:16 Ur Specific [place] 1.014 (1.000-1.030) 01/14/23 22:16 Urine Protein Negative (Negative) 01/14/23 22:16 Urine Glucose (UA) Negative (Negative) 01/14/23 22:16 Urine Ketones Trace (Negative) H 01/14/23 22:16 Urine Nitrite Negative (Negative) 01/14/23 22:16 Ur Leukocyte Esterase Negative (Negative) 01/14/23 22:16 Urine WBC (Auto) 1-5 /hpf (0-5) 01/14/23 22:16 Urine RBC (Auto) 0-4 /hpf (0-4) 01/14/23 22:16 U Hyaline Cast (Auto) 1-5 /lpf (0-5) 01/14/23 22:16 U Epithel Cells (Auto) 0-5 /lpf (0-5) 01/14/23 22:16 Urine Bacteria (Auto) Negative (Negative) 01/14/23 22:16
[2023-01-15] MEDS ORDERED: KETAMINE 50 MG/5 ML SYRINGE ONE (13:19)
[2023-01-15] MEDS ORDERED: DIATRIZOATE MEGLUMINE 30% 100ML VIAL INSTIL PRN (13:36)
--- NOTE | 2023-01-15 13:39 | Operative Report ---
PG Post Operative Report Pre & Post Diagnosis Operation Date: 01/15/23 13:30 Pre-Op Diagnosis: Left Ureteral Stone Post-Op Diagnosis: Left Ureteral Stone I identified the patient and participated in the time-out.: Yes Procedure Operation Date: 01/15/23 13:30 Actual Procedures p Cystoscopy with Left Retrograde Pyelogram, Urine Aspiration, and Left Ureteral Stent(Left) - Jabari Bliss DO Surgeon Jabari Bliss, II, DO Switchboard Manager None Estimated Blood Loss 1 Findings Consistent with Post-Op Diagnosis Stent placed in good position. Significant obstruction with large debris in bladder. Specimens Urine for culture. Drains 6 Fr Multilength Anesthesia Type MAC Complications none Disposition Disposition: Recovery Room Indications Patient with obstruction. Risks and benefits discussed at length. Description of Procedure Patient was consented and brought back to the operating room. Patient was placed under anesthesia in the supine position and moved to the dorsal lithotomy position. Patient was prepped and draped in the regular sterile fashion. A time out was completed. A 30degree Cystoscope was placed into the bladder and the entire bladder was examined. The UO's were identified. The UO was cannulized with a catheter and a retrograde pyelogram was completed. Severe obstruction was noted. A wire was then attempted to be placed. Significant manipulation was necessary. A 5 Fr catheter was utilized and was able to bypass the obstruction. A large amount of debris was noted after bypassing the stone. Urine was aspirated and sent for culture. A wire was placed. With the wire in place, a 6 Fr Double J stent was placed. It was confirmed with fluoroscopy. With the stent in place, the bladder was emptied. The scope was removed. The patient was cleaned, aroused from anesthesia, and transferred to the pacu in stable condition having tolerated the procedure well with no complications. I was present and participated in all aspects of the procedure. The patient will be monitored in the PACU until transferred. Plan for stone treatment in next 1-2 weeks after completion of antibiotics. I attest to the content of the Intraoperative Record and any orders documented therein. Any exceptions are noted below.
--- NOTE | 2023-01-15 13:59 | Fluoroscopy Report ---
FL retrograde includes kub CLINICAL HISTORY: RETROGRADEleft-sided cystourethrogram COMPARISON STUDY: CT 01/13/2023 FLUOROSCOPY TIME: 64.1 seconds FLUOROSCOPY IMAGES: 3 EXPOSURE DOSE: 19.48 mGy FINDINGS: A left-sided ureteral stent has been placed which appears to be in satisfactory positioning . Initial image demonstrates a contrast opacified renal collecting system and proximal ureter which d emonstrates no significant hydronephrosis. IMPRESSION: Fluoroscopic assistance as above. ACT 112: Negative or not required by law. Electronically signed by: Henrry Long M.D. 01/15/2023 1:58 PM
--- NOTE | 2023-01-15 14:09 | Anesthesiology Progress Note ---
Date of Service January 15, 2023 Anesthesia Post Procedure Vital Signs Vital Signs: Temp Pulse Pulse Pulse Resp BP BP 01/15/23 13:55 87 15 132/94 01/15/23 13:48 97.2 F L 79 19 129/69 01/15/23 12:43 99.1 F 82 18 139/78 01/15/23 12:16 98.6 F 82 17 160/79 H 01/15/23 07:00 98.6 F 70 14 133/73 01/15/23 03:19 98.2 F 68 18 136/72 01/15/23 02:51 64 16 122/71 01/15/23 02:40 60 16 01/15/23 02:30 62 16 01/15/23 02:20 64 22 01/15/23 02:10 66 18 01/15/23 02:00 63 25 H 01/15/23 02:00 122/71 01/15/23 01:50 63 17 01/15/23 01:40 67 21 01/15/23 01:30 65 19 01/15/23 01:20 68 18 01/15/23 01:17 64 18 01/15/23 01:17 130/71 01/15/23 01:10 67 20 01/15/23 01:00 69 21 01/15/23 00:53 77 24 01/15/23 01:17 67 16 130/71 01/14/23 21:40 99.0 F 83 18 163/75 H Pulse Ox O2 Del Method O2 Flow Rate 01/15/23 13:55 97 Oxymask 5 01/15/23 13:48 97 Oxymask 5 01/15/23 12:43 94 Room Air 01/15/23 12:16 98 Room Air 01/15/23 07:00 95 Room Air 01/15/23 03:19 94 Room Air 01/15/23 02:51 95 Room Air 01/15/23 02:40 94 01/15/23 02:30 94 01/15/23 02:20 93 01/15/23 02:10 93 01/15/23 02:00 93 01/15/23 02:00 01/15/23 01:50 93 01/15/23 01:40 92 01/15/23 01:30 93 01/15/23 01:20 94 01/15/23 01:17 96 01/15/23 01:17 01/15/23 01:10 94 01/15/23 01:00 95 01/15/23 00:53 96 01/15/23 01:17 94 Room Air 01/14/23 21:40 98 Room Air Pain Intensity Left Flank: Pain Intensity: 2 Transfer of Care Handoff Completed per policy Notes Mental Status: alert / awake / arousable and participated in evaluation Patient Amnestic to Procedure: Yes Nausea / Vomiting: adequately controlled Pain: adequately controlled Airway Patency, RR, SpO2: stable & adequate BP & HR: stable & adequate Hydration State: stable & adequate Anesthetic Complications: no major complications apparent and Pt Satisfied with anesthetic care
--- NOTE | 2023-01-15 23:34 | Hospitalist Progress Note ---
Date of Service January 15, 2023 Assessment & Plan (1) Ureterolithiasis: Plan: Patient with intractable left flank pain from 4 mm proximal left ureterolithiasis Also here with acute kidney injury but no evidence of UTI -Admit to medical/surgical unit -Consult urology as we will likely need a more urgent stent given the acute kidney injury --Keep n.p.o. after midnight -Start normal saline at 100 MLS per hour -Continue tamsulosin -Morphine IV as needed for pain -Follow BMP in the morning Present on Admission?: Yes (2) MELLY (acute kidney injury): Plan: Creatinine 1.69 up from 1.1 the day prior -Likely secondary to left obstructive ureterolithiasis and possibly due to prerenal from poor p.o. intake -Hydrate with IV fluids -Consult urology for likely ureteral stent as above Present on Admission?: Yes (3) Asthma: Plan: No acute issues Albuterol as needed (4) Hyponatremia: Plan: Sodium mildly low at 134, likely secondary to hypovolemia Giving normal saline Follow BMP in the morning (5) Hyperbilirubinemia: Plan: Total bilirubin mildly elevated at 1.3 and has been mildly elevated in the past Likely has Gilbert's syndrome especially as CT abdomen/pelvis from 01/13 is with normal liver and gallbladder and bile ducts No need to follow (6) Dyslipidemia: Plan: Continue statin (7) Impaired glucose metabolism: Plan: No acute issues Plan DVT prophylaxis-SCDs only as will likely have planned urology procedure Disposition-admit to medical/surgical unit. If has ureteral stent tomorrow, can likely discharge home later in the day if pain is controlled and renal function is improved Admission and Anticipated Discharge Date Admission Date: January 14, 2023 Subjective Patient seen during hospitalist rounds with and sister and sisters daughter in attendance and he is postop status post left double-J stent placement. He feels 100% better and stent placement was quite successful. We talked about discharge for tomorrow. We reviewed his history and physical. His symptoms began abruptly prior to entry to the hospital and his pain was 10 out of 10. Review of Systems Constitutional: + fatigue Physical Exam Constitutional: WD/WN, vitals as above Eyes: PERRL, conjunctivae normal, anicteric sclerae ENMT: external ear and nose normal, oropharynx normal Neck: trachea midline, no thyromegaly Respiratory: normal respiratory effort, lungs clear to auscultation Cardiovascular: RRR, no murmur, no edema Gastrointestinal (Abdomen): normal bowel sounds, soft, nontender, no hepatosplenomegaly Musculoskeletal: no cyanosis or clubbing, extremities motor strength 5/5 Skin: no rashes, warm and dry Neurologic: PERRL, EOMI, accommodation nl, no face palsy, no dysarthria Psychiatric: A+Ox3, euthymic affect Results & Data Results & Data Vital Signs (Past 12 Hours) Vital Signs Temp Pulse Pulse Pulse Resp BP Pulse Ox 01/15/23 23:13 38.3 C H 72 18 131/72 94 01/15/23 19:00 38 C H 78 18 132/71 94 01/15/23 17:45 37.7 C H 83 16 145/71 H 94 01/15/23 16:46 37.5 C 85 16 118/65 95 01/15/23 15:33 37.1 C 80 15 154/77 H 97 01/15/23 15:02 37.1 C 71 15 134/72 94 01/15/23 14:30 37.5 C 84 16 152/74 H 94 01/15/23 13:55 87 15 132/94 97 01/15/23 13:48 36.2 C L 79 19 129/69 97 01/15/23 12:43 37.3 C 82 18 139/78 94 01/15/23 12:16 37.0 C 82 17 160/79 H 98 O2 Del Method O2 Flow Rate 01/15/23 23:13 Room Air 01/15/23 19:00 Room Air 01/15/23 17:45 Room Air 01/15/23 16:46 Room Air 01/15/23 15:33 Room Air 01/15/23 15:02 Room Air 01/15/23 14:30 Room Air 01/15/23 13:55 Oxymask 5 01/15/23 13:48 Oxymask 5 01/15/23 12:43 Room Air 01/15/23 12:16 Room Air PG Care Time/CCT Total # of Minutes Spent Total Time Spent with Patient: Total time spent is greater than 50% in coordination of care (as documented) at patient's floor/unit and/or counseling patient: Coding Level of Care Code 61760 SUB INP/OBS CARE MIN Diagnoses Ureterolithiasis N20.1 MELLY (acute kidney injury) N17.9 Asthma J45.20 Asthma complication type: uncomplicated Asthma persistence: intermittent Asthma severity: mild Hyponatremia E87.1 Hyperbilirubinemia E80.6 Dyslipidemia E78.5 Impaired glucose metabolism R73.09 Time Spent (min) 35 (3) Asthma Asthma complication type: uncomplicated Asthma persistence: intermittent Asthma severity: mild Qualified Code(s): J45.20 - Mild intermittent asthma, uncomplicated
[2023-01-16] MEDS: SODIUM CHLORIDE 0.9% 1000ML 1,000 ML IV SCH ×2 (01:08→10:47)
[2023-01-16] MEDS: ROSUVASTATIN CALCIUM 10 MG TAB PO SCH (08:37)
--- NOTE | 2023-01-16 13:04 | Discharge Summary ---
Date of Service January 16, 2023 Admission HPI Per Admitting Provider This patient is a 67-year-old male with a history of hyperlipidemia, asthma, and impaired fasting glucose who presents to the ER with intractable left flank and abdominal pain ongoing since being seen for this in the ER on 01/13 when he was diagnosed with a 4 mm proximal left ureteral stone. He was sent home and had close follow-up with urology in the office the next day and arrangements were made for treatment of the stone. He was given tamsulosin and oxycodone. He came to the ER because he is having ongoing severe pain, some nausea but no vomiting. He also complains of constipation x2 days and had some bright red blood on the toilet paper with straining to have a bowel movement today without success. He denies fevers or chills, no headaches or lightheadedness, no chest pain or shortness of breath, no other complaints. In the ER, he was mildly hypertensive but otherwise vitals were stable and he was afebrile. He was treated with IV fluids, a dose of morphine and Toradol as well as Zofran with some relief. He was also found to have an acute kidney injury with creatinine up to 1.69 from 1.1 the day prior. His urinalysis did not show any evidence of infection. He will be admitted for left ureterolithiasis and acute kidney injury. Principal Diagnosis Left ureteral hydronephrosis and obstructive nephropathy due to left-sided kidney stone Discharge Exam Constitutional WD/WN, vitals as above Eyes PERRL, conjunctivae normal, anicteric sclerae ENMT external ear and nose normal, oropharynx normal Neck trachea midline, no thyromegaly Respiratory normal respiratory effort, lungs clear to auscultation Cardiovascular RRR, no murmur, no edema Gastrointestinal (Abdomen) normal bowel sounds, soft, nontender, no hepatosplenomegaly Musculoskeletal no cyanosis or clubbing, extremities motor strength 5/5 Skin no rashes, warm and dry Neurologic PERRL, EOMI, accommodation nl, no face palsy, no dysarthria Psychiatric A+Ox3, euthymic affect Discharge Data Allergies Allergy/AdvReac Type Severity Reaction Status Date / Time levofloxacin [From Levaquin] Allergy chest pain Verified 01/14/23 15:18 Consultations 01/14/23 23:34 ED Decision to Admit Stat 01/15/23 03:19 Consult Urology Routine Procedures Performed Operation Date: 01/15/23 13:30 Actual Procedures p Cystoscopy, Left Retrograde Pyelogram and Left Ureteral Stent(Left) - Jabari Bliss, DO Ordered Studies 01/15/23 [place] retrograde includes kub Routine Hospital Course (1) Ureterolithiasis: Patient with intractable left flank pain from 4 mm proximal left ureterolithiasis Also here with acute kidney injury but no evidence of UTI -Admit to medical/surgical unit -Consult urology as we will likely need a more urgent stent given the acute kidney injury --Keep n.p.o. after midnight -Start normal saline at 100 MLS per hour -Continue tamsulosin -Morphine IV as needed for pain -Follow BMP in the morning (2) MELLY (acute kidney injury): Creatinine 1.69 up from 1.1 the day prior -Likely secondary to left obstructive ureterolithiasis and possibly due to prerenal from poor p.o. intake -Hydrate with IV fluids -Consult urology for likely ureteral stent as above (3) Asthma: No acute issues Albuterol as needed (4) Hyponatremia: Sodium mildly low at 134, likely secondary to hypovolemia Giving normal saline Follow BMP in the morning (5) Hyperbilirubinemia: Total bilirubin mildly elevated at 1.3 and has been mildly elevated in the past Likely has Gilbert's syndrome especially as CT abdomen/pelvis from 01/13 is with normal liver and gallbladder and bile ducts No need to follow (6) Dyslipidemia: Continue statin (7) Impaired glucose metabolism: No acute issues Plan DVT prophylaxis-SCDs only as will likely have planned urology procedure Disposition-admit to medical/surgical unit. If has ureteral stent tomorrow, can likely discharge home later in the day if pain is controlled and renal function is improved Total Time Total Time Spent Total Time Spent (In Minutes): 42 Discharge Plan Discharge Items Patient Disposition: Home - Self-Care Reason For Visit: MELLY, KIDNEY STONE Discharge Diagnosis: Left ureteral hydronephrosis due to kidney stone Condition on Discharge: Good Health Concerns: Follow-up for removal of left-sided double-J ureteral stent and kidney stone Goals: Feel better pain-free Activity: Resume your previous activity Lifting: Gradually increase as tolerated Bathing: No limitations Non-emergency contact: Primary Care Provider and Urologist Call non-emergency contact if: you have any medication questions, your symptoms worsen, your pain is concerning for you and your temperature is above 101.5 Follow-up/Referrals: Ced Fenton DO [Primary Care Provider] - Diet: Regular Addtl Attending Provider Instructions: Make contact with urology Dr. Jabari Bliss Pending Studies at Discharge: No Stand-Alone Forms: My [facility], Smoking Cessation Medications and DC Order Prescriptions: New cefdinir 300 mg capsule 300 mg PO BID 10 Days Qty: 20 0RF Continued glucosamine HCl 1,500 mg tablet 1,500 mg PO DAILY albuterol sulfate [Proventil HFA] 90 mcg/actuation HFA aerosol inhaler 1 puff INH Q4H PRN (Reason: shortness of breath or wheezing) Qty: 6.7 5RF omega-3 fatty acids 1,000 mg capsule 1,000 mg PO DAILY multivitamin tablet 1 tab PO DAILY vitamin B complex [B Complex-Vitamin B12] Tablet 1 tab PO DAILY rosuvastatin 10 mg tablet 10 mg PO DAILY Qty: 90 3RF tadalafil [Cialis] 20 mg tablet 20 mg PO DAILY PRN (Reason: sexual activity) Qty: 6 4RF oxycodone 5 mg tablet 5 mg PO Q6H PRN (Reason: pain) Qty: 14 0RF ondansetron 4 mg tablet,disintegrating 4 mg PO Q4H PRN (Reason: nausea and vomiting) Qty: 10 0RF tamsulosin [Flomax] 0.4 mg capsule 0.4 mg PO HS Rx Instructions: Take one capsule at bedtime. Discharge Orders: Discharge Order (Routine); Ordered 01/16/23 Ordered By: Ced Arellano Admission Data Admit Date/Time: 01/14/23 23:55 Attending Provider: Ced Arellano Admit Provider: Pari Corrales Primary Care Provider: Ced Fenton Other Providers: Pari Corrales ; Loki Holbrook Coding Level of Care Code 53840 INP/OBS DISCH >30 MIN Diagnoses Ureterolithiasis N20.1 MELLY (acute kidney injury) N17.9 Asthma J45.20 Asthma complication type: uncomplicated Asthma persistence: intermittent Asthma severity: mild Hyponatremia E87.1 Hyperbilirubinemia E80.6 Dyslipidemia E78.5 Impaired glucose metabolism R73.09 Time Spent (min) 42
== END 2023-01-16 14:31 | disposition home or self-care (01) | DRG 660 ==
LOC: ED 21:32 → SUATTDRO 23:55 → 3W 23:55